=== PATIENT | male | born 1945 | race African-American/Black ===

== ENCOUNTER 2016-11-03 13:32 | Emergency (ER) | payer MEDICARE ==
[~2016-11-03 13:32] MED LIST: Sodium Chloride 0.9% 1,000 ML BAG ONE; Sodium Chloride 0.9% 100 ML BAG ONE
[2016-11-03] MEDS ORDERED: Acetaminophen 500 MG TAB ONE (14:04)
[2016-11-03 14:25] LABS: #Basophils 0.1 thou/uL (0.0-0.2); #Lymphocytes 0.5 thou/uL (1.20-3.40); #Monocytes 0.3 thou/uL (0.11-0.59); #Neutrophils 10.7 thou/uL (1.40-6.50); %Basophils 0.8 % (0.0-1.0); %Eosinophils 0.1 % (0.0-10.0); %Lymphocytes 4.3 % (21.0-51.0); %Monocytes 2.8 % (0.0-10.0); %Neutrophils 92.1 % (42.0-75.0); Hemoglobin 13.3 g/dL (14.0-18.0); Mean Corpuscular HGB CONC 32.8 g/dL (32.0-36.0); Mean Corpuscular Hemoglobin 27.5 pg (27.0-31.0); Mean Platelet Volume 8.4 fL (7.4-10.4); Platelet Count 131 thou/uL (130-400); RBC Distribution Width 12.9 % (11.5-14.5); Red Blood Cell (RBC) Count 4.84 mill/uL (4.70-6.10); White Blood Cell (WBC) Count 11.6 thou/uL (4.8-10.8)
--- NOTE | 2016-11-03 14:37 | RAD ---
PORTABLE UPRIGHT FRONTAL CHEST RADIOGRAPH: Date: 11-03-16 Comparison: None. History: Fever with unknown etiology. FINDINGS: Lungs appear clear. Heart and mediastinal contours within normal limits. Osseous structures are un remarkable. IMPRESSION: No acute findings. POS: [facility]
[2016-11-03 14:43] LABS: ALT (SGPT) 16 U/L (0-55); AST (SGOT) 16 U/L (5-34); Albumin 3.9 g/dL (3.4-4.8); Alkaline Phosphatase 51 U/L (40-150); Anion Gap 16 mmol/L (10-20); BUN (Urea Nitrogen) 25 mg/dL (8.4-25.7); Calc. Creatinine Clearance 0 mL/min (70-130); Calcium 8.7 mg/dL (7.8-10.44); Carbon Dioxide 19 mmol/L (23-31); Chloride 102 mmol/L (98-107); Estimated GFR-MDRD 46; Globulin 2.6 g/dL (2.4-3.5); Glucose 208 mg/dL (83-110); Potassium 3.8 mmol/L (3.5-5.1); Protein, Total 6.5 g/dL (5.8-8.1); Sodium 133 mmol/L (136-145)
[2016-11-03 16:00] LABS: Bilirubin Negative (Negative); Blood, Urine Negative (Negative); Clarity Clear (Clear); Glucose, Urine (Dipstick) Negative (Negative); Leukocyte Negative (Negative); Nitrite Negative (Negative); Protein, Urine (Dipstick) 30 mg/dL (Neg-Trace); Urobilinogen 0.2 mg/dL (0.2-1.0); pH, Urine 5.5 (5.0-9.0)
[2016-11-03 16:02] LABS: Specific Gravity, Urine 1.008 (1.002-1.036)
[2016-11-03] MEDS ORDERED: cefTRIAXone\\ROCEPHIN 2 GM VIAL ONE (16:02)
[2016-11-03 16:04] LABS: Bacteria/HPF None Seen HPF (None Seen); RBC/HPF 0-3 HPF (0-3); Squamous Epithelial 0-3 HPF (0-3); WBC/HPF None Seen HPF (0-3)
== END 2016-11-03 17:20 | disposition home or self-care (01) ==
LOC: MADERS 13:32
DX: R50.9 Fever, unspecified (principal); E11.9 Type 2 diabetes mellitus without complications
CPT/HCPCS: 36415; 71010; 80053; 81003; 81015; 83605; 85025; 87040; 87086; 87430; 96361; 96365; J0696; J7050

== ENCOUNTER 2016-11-08 15:04 | Outpatient (CLI) | payer MEDICARE ==
[2016-11-08 15:34] LABS: #Basophils 0.1 thou/uL (0.0-0.2); #Eosinphils 0.1 thou/uL (0.0-0.7); #Lymphocytes 1.9 thou/uL (1.20-3.40); #Monocytes 0.9 thou/uL (0.11-0.59); #Neutrophils 8.1 thou/uL (1.40-6.50); %Basophils 1.1 % (0.0-1.0); %Eosinophils 0.8 % (0.0-10.0); %Lymphocytes 17.2 % (21.0-51.0); %Monocytes 7.7 % (0.0-10.0); %Neutrophils 73.2 % (42.0-75.0); Hemoglobin 13.2 g/dL (14.0-18.0); Mean Corpuscular HGB CONC 32.8 g/dL (32.0-36.0); Mean Corpuscular Hemoglobin 27.2 pg (27.0-31.0); Mean Platelet Volume 8.4 fL (7.4-10.4); Platelet Count 229 thou/uL (130-400); RBC Distribution Width 12.8 % (11.5-14.5); Red Blood Cell (RBC) Count 4.84 mill/uL (4.70-6.10); White Blood Cell (WBC) Count 11.1 thou/uL (4.8-10.8)
[2016-11-08 15:42] LABS: Anion Gap 16 mmol/L (10-20); BUN (Urea Nitrogen) 36 mg/dL (8.4-25.7); Calc. Creatinine Clearance 0 mL/min (70-130); Carbon Dioxide 22 mmol/L (23-31); Chloride 101 mmol/L (98-107); Estimated GFR-MDRD 52; Glucose 132 mg/dL (83-110); Potassium 4.1 mmol/L (3.5-5.1); Sodium 135 mmol/L (136-145)
== END 2016-11-08 15:05 | disposition home or self-care (01) ==
LOC: MADLABBHPM 15:04
PROVIDERS: ATTEND Family Medicine
DX: R50.9 Fever, unspecified (principal)
CPT/HCPCS: 80048; 85025; 85060

== ENCOUNTER 2019-03-01 10:15 | Outpatient (CLI) | payer MEDICARE ==
[2019-03-01 21:47] LABS: Albumin (w/Testosterone Panel) 4.6 g/dL
[2019-03-01 22:14] LABS: Sex Hormone Binding Globulin 24.2 nmol/L (11-78); Testosterone, Free 91.8 pg/mL (47-244); Testosterone, Total 398.3 ng/dL (221-716)
== END 2019-03-01 10:16 | disposition home or self-care (01) ==
LOC: MADLABBHPM 10:15
PROVIDERS: ATTEND Family Medicine
DX: R53.83 Other fatigue (principal); R68.82 Decreased libido
CPT/HCPCS: 36415; 84270; 84403; 84443

== ENCOUNTER 2019-10-31 15:08 | Outpatient (CLI) | payer MEDICARE ==
--- NOTE | 2019-10-31 15:51 | RAD ---
PA AND LATERAL CHEST: 10/31/19 HISTORY: Exertional dyspnea. COMPARISON: A 11/03/16 study. Heart size and mediastinum are within normal limits. The lungs are clear of infiltrates. There are ar thritic changes of the spine. IMPRESSION: No active intrathoracic disease. Stable chest. POS: [facility]
[2019-10-31 16:27] LABS: #Basophils 0.2 thou/uL (0.0-0.2); #Eosinphils 0.2 thou/uL (0.0-0.7); #Lymphocytes 2.4 thou/uL (1.20-3.40); #Monocytes 0.4 thou/uL (0.11-0.59); #Neutrophils 3.2 thou/uL (1.40-6.50); %Basophils 2.4 % (0.0-1.0); %Monocytes 6.5 % (0.0-10.0); Hemoglobin 14.3 g/dL (14.0-18.0); Mean Corpuscular HGB CONC 30.6 g/dL (32.0-36.0); Mean Corpuscular Hemoglobin 26.6 pg (27.0-31.0); Mean Corpuscular Volume 86.9 fL (78.0-98.0); Mean Platelet Volume 9.8 fL (7.4-10.4); Platelet Count 178 thou/uL (130-400); RBC Distribution Width 12.7 % (11.5-14.5); Red Blood Cell (RBC) Count 5.38 mill/uL (4.70-6.10); White Blood Cell (WBC) Count 6.4 thou/uL (4.8-10.8)
[2019-10-31 16:41] LABS: ALT (SGPT) 21 U/L (8-55); AST (SGOT) 20 U/L (5-34); Albumin 4.4 g/dL (3.4-4.8); Alkaline Phosphatase 68 U/L (40-110); Anion Gap 15 mmol/L (10-20); BUN (Urea Nitrogen) 19 mg/dL (8.4-25.7); Bilirubin, Total 0.5 mg/dL (0.2-1.2); Calc. Creatinine Clearance 0 mL/min (70-130); Calcium 8.9 mg/dL (7.8-10.44); Carbon Dioxide 24 mmol/L (23-31); Chloride 106 mmol/L (98-107); Estimated GFR-MDRD 53; Globulin 2.8 g/dL (2.4-3.5); Glucose 109 mg/dL (83-110); Potassium 3.9 mmol/L (3.5-5.1); Protein, Total 7.2 g/dL (5.8-8.1); Sodium 141 mmol/L (136-145)
== END 2019-10-31 15:09 | disposition home or self-care (01) ==
LOC: MADLABBHPM 15:08
PROVIDERS: ATTEND Family Medicine
DX: R06.09 Other forms of dyspnea (principal)
CPT/HCPCS: 36415; 71046; 80053; 85025

== ENCOUNTER 2020-10-02 08:44 | Outpatient (CLI) | payer MEDICARE ==
[2020-10-02 09:19] LABS: Anion Gap 15 mmol/L (10-20); BUN (Urea Nitrogen) 22 mg/dL (8.4-25.7); Calc. Creatinine Clearance 0 mL/min (70-130); Calcium 9.3 mg/dL (7.8-10.44); Carbon Dioxide 26 mmol/L (23-31); Chloride 102 mmol/L (98-107); Glucose 130 mg/dL (83-110); Magnesium 2.2 mg/dL (1.6-2.6); Phosphorus 3.4 mg/dL (2.3-4.7); Potassium 4.2 mmol/L (3.5-5.1); Sodium 139 mmol/L (136-145)
[2020-10-02 11:03] LABS: Hemoglobin 16.1 g/dL (14.0-18.0)
[2020-10-02 17:25] LABS: Creatinine, Urine 89.63 mg/dL (63-166)
== END 2020-10-02 08:45 | disposition home or self-care (01) ==
LOC: MADLAB 08:44
PROVIDERS: ATTEND Internal Medicine Nephrology
DX: I12.9 Hypertensive chronic kidney disease with stage 1 through stage 4 chronic kidney disease, or unspecified chronic kidney disease (principal); N18.30 Chronic kidney disease, stage 3 unspecified
CPT/HCPCS: 36415; 80048; 82306; 82570; 83735; 83970; 84100; 84156; 85014; 85018

== ENCOUNTER 2020-10-06 07:37 | Outpatient (CLI) | payer MEDICARE ==
--- NOTE | 2020-10-06 08:16 | ULT ---
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 Abnormality: The right kidney demonstrates a normal echotexture. The right renal cortical thickness i s approximately 1.2 cm. No focal renal lesion or hydronephrosis is evident. Left Kidney: Size: Surgically absent Abnormality: Not applicable Urinary bladder: The prevoid bladder volume was 71 cc. The post void bladder volume was 14 cc. The vo iding volume was 36 cc. No intraluminal mass is evident. IMPRESSION: 1. History of donated left kidney. 2. No focal renal lesion or hydronephrosis involving the right kidney.
== END 2020-10-06 07:38 | disposition home or self-care (01) ==
LOC: MADULT 07:37
PROVIDERS: ATTEND Internal Medicine Nephrology
DX: N18.30 Chronic kidney disease, stage 3 unspecified (principal); Z52.4 Kidney donor
CPT/HCPCS: 76775

== ENCOUNTER 2022-01-20 09:35 | Emergency (ER) | payer MEDICARE ==
[2022-01-20 21:54] LABS: SARS-CoV-2 PCR by NAA DETECTED (NotDetected)
== END 2022-01-20 10:50 | disposition home or self-care (01) ==
LOC: MADERS 09:35
DX: U07.1 COVID-19 (principal); E11.9 Type 2 diabetes mellitus without complications; Z79.899 Other long term (current) drug therapy
CPT/HCPCS: 87804 ×2; U0003; U0005; 99284

== ENCOUNTER 2023-08-12 10:56 | Emergency (ER) | payer MEDICARE, OTHER ==
[2023-08-12] MEDS ORDERED: Acetaminophen 500 MG TAB ONE (12:01)
[2023-08-12 12:46] LABS: Anion Gap 14 mmol/L (10-20); BUN (Urea Nitrogen) 25 mg/dL (8.4-25.7); Calc. Creatinine Clearance 0 mL/min (70-130); Calcium 9.6 mg/dL (7.8-10.44); Carbon Dioxide 24 mmol/L (23-31); Chloride 104 mmol/L (98-107); Estimated GFR 38; Glucose 118 mg/dL (83-110); Potassium 4.4 mmol/L (3.5-5.1); Sodium 138 mmol/L (136-145)
[2023-08-12 12:56] LABS: Troponin I Less than 0.010 ng/mL (< 0.028)
== END 2023-08-12 13:22 | disposition home or self-care (01) ==
LOC: MADERS 10:56
DX: S46.912A Strain of unspecified muscle, fascia and tendon at shoulder and upper arm level, left arm, initial encounter (principal); E11.9 Type 2 diabetes mellitus without complications; X50.0XXA Overexertion from strenuous movement or load, initial encounter
CPT/HCPCS: 36415; 80048; 84484; 93005

== ENCOUNTER 2024-07-30 07:51 | Emergency (ER) | payer MEDICARE ==
[2024-07-30] MEDS ORDERED: Oxymetazoline HCl 0.05% (30 ML BOT) ONE (08:19)
[2024-07-30 09:11] LABS: INR-International Normal Ratio 1.1; Prothrombin Time 13.7 sec (12.0-14.7)
[2024-07-30 09:13] LABS: PTT 27.3 sec (22.9-36.1)
[2024-07-30 09:16] LABS: #Basophils 0.1 thou/uL (0.0-0.2); #Eosinophils 0.1 thou/uL (0.0-0.7); #Lymphocytes 1.7 thou/uL (1.20-3.40); #Monocytes 0.4 thou/uL (0.11-0.59); #Neutrophils 2.1 thou/uL (1.40-6.50); %Basophils 2.6 % (0.0-1.0); %Eosinophils 3.3 % (0.0-10.0); %Lymphocytes 37.9 % (21.0-51.0); %Monocytes 9.2 % (0.0-10.0); Hematocrit 48.3 % (42.0-52.0); Mean Corpuscular Hemoglobin 26.6 pg (27.0-31.0); Mean Corpuscular Volume 86.1 fl (78.0-98.0); Mean Platelet Volume 8.4 fL (7.4-10.4); Platelet Count 197 10x3/uL (130-400); RBC Distribution Width 13.9 % (11.5-14.5); Red Blood Cell (RBC) Count 5.62 mill/uL (4.70-6.10); White Blood Cell (WBC) Count 4.4 10x3/uL (4.8-10.8)
== END 2024-07-30 09:43 | disposition home or self-care (01) ==
LOC: MADERS 07:51
DX: R04.0 Epistaxis (principal); E11.9 Type 2 diabetes mellitus without complications; Z79.82 Long term (current) use of aspirin
CPT/HCPCS: 36415; 85025; 85610; 85730; 99283